=== PATIENT | female | born 1945 | race Caucasian/White ===

== ENCOUNTER → 2021-07-05 | Outpatient (CLI) | payer MEDICARE, OTHER ==
[~2021-07-05] VITALS: Ht 160 cm; Wt 88.9 kg
[~2021-07-05] MED LIST: ANTIVERT 25MG T25 MG PO; IBUPROFEN400 MG PO; NORCO 5-325 TA1 EACH PO
== END ==
LOC: OPSV 10:24
DX: L03.039 Cellulitis of unspecified toe (principal); B95.62 Methicillin resistant Staphylococcus aureus infection as the cause of diseases classified elsewhere; B95.2 Enterococcus as the cause of diseases classified elsewhere
CPT/HCPCS: 96365; 96366; J2407; J7070

== ENCOUNTER → 2021-09-03 | Outpatient (CLI) | payer MEDICARE, OTHER | LOC: HEART 5 14:53 | DX: R01.1 Cardiac murmur, unspecified (principal) | CPT/HCPCS: 93306 ==

== ENCOUNTER 2021-10-12 00:08 | Emergency (ER) | payer MEDICARE, OTHER ==
[2021-10-12 01:10] LABS: RED BLOOD COUNT 4.62 M/UL (4.00-5.10); WHITE BLOOD COUNT 10.5 K/UL (4.5-11.0)
[2021-10-12 02:06] LABS: BUN/CREATININE RATIO 24 (0-10)
[2021-10-12] MEDS ORDERED: ZOFRAN ODT 4 MG4 MG PO (06:58)
== END 2021-10-12 07:13 | disposition home or self-care (01) ==
LOC: ER1 00:08
PROVIDERS: Family Medicine
DX: R41.0 Disorientation, unspecified (principal); E11.9 Type 2 diabetes mellitus without complications; R74.02 Elevation of levels of lactic acid dehydrogenase [LDH]; R11.2 Nausea with vomiting, unspecified; Z79.84 Long term (current) use of oral hypoglycemic drugs; I10 Essential (primary) hypertension; Z88.0 Allergy status to penicillin; Z88.2 Allergy status to sulfonamides; Z20.822 Contact with and (suspected) exposure to COVID-19
CPT/HCPCS: 51701; 70450; 71045; 80053; 80307; 81001; 82009; 82140; 82550; 82553; 83605; 83690; 83735; 83874; 84439; 84443; 84484; 85025; 93005; 96374; 99285; G0480; J2405; U0002

== ENCOUNTER → 2022-03-19 | Outpatient (CLI) | payer MEDICARE, OTHER ==
[~2022-03-19] MED LIST changes: +ZOFRAN ODT 4 MG4 MG PO
== END ==
LOC: EMI 11:11
DX: G30.0 Alzheimer's disease with early onset (principal); F02.80 Dementia in other diseases classified elsewhere, unspecified severity, without behavioral disturbance, psychotic disturbance, mood disturbance, and anxiety; R41.89 Other symptoms and signs involving cognitive functions and awareness; E11.42 Type 2 diabetes mellitus with diabetic polyneuropathy; E11.8 Type 2 diabetes mellitus with unspecified complications; Z87.891 Personal history of nicotine dependence; R41.3 Other amnesia
CPT/HCPCS: 70551